=== PATIENT | male | born 2000 | race Two or more races ===

== ENCOUNTER 2024-06-01 03:00 | Emergency (ER) | payer OTHER ==
[~2024-06-01] VITALS: Ht 185.4 cm; Wt 72.1 kg
[2024-06-01 03:03] VITALS: BP 111/57; PULSE 66; RESP 16; TEMP 98.6; O2SAT 98
[2024-06-01] MEDS: IBUPROFEN 600 MG TABLET PO ONE (03:25)
[2024-06-01] MEDS: ACETAMINOPHEN 325 MG TABLET PO ONE (03:26)
== END 2024-06-01 04:17 | disposition home or self-care (01) ==
LOC: EMS 03:03
DX: G56.21 Lesion of ulnar nerve, right upper limb (principal)
CPT/HCPCS: 99283